=== PATIENT | female | born 1960 | race Caucasian/White ===

== ENCOUNTER → 2017-02-27 | Outpatient (CLI) | payer OTHER ==
[~2017-02-27] MED LIST: LIDOCAINE 1%, 50ML ONE
== END | disposition home or self-care (01) ==
LOC: CFH 07:44
PROVIDERS: ATTEND Nurse Practitioner Primary Care
DX: R92.1 Mammographic calcification found on diagnostic imaging of breast (principal); R92.2 Inconclusive mammogram
CPT/HCPCS: 19081; 88305; G0206; J3490

== ENCOUNTER 2018-10-19 03:54 | Emergency (ER) | payer BC, OTHER ==
[~2018-10-19] VITALS: Ht 152.4 cm; Wt 65.9 kg
[2018-10-19 08:05] VITALS: BP 155/74
== END 2018-10-19 08:07 | disposition home or self-care (01) ==
LOC: ED 06:17
DX: K80.70 Calculus of gallbladder and bile duct without cholecystitis without obstruction (principal); N30.00 Acute cystitis without hematuria
CPT/HCPCS: 36415; 76700; 80053; 81001; 83690; 85025; 87077; 87086; 93005; 96374; 96375; 99284; J1170; J2405; 87186

== ENCOUNTER 2019-03-22 23:00 | Emergency (ER) | payer OTHER ==
[~2019-03-22] VITALS: Ht 152.4 cm; Wt 63.8 kg
[2019-03-23 00:14] LABS: BASOPHILS # (AUTO) 0.04 x10^3/uL (0-0.1); BASOPHILS % (AUTO) 0 % (0-1); EOSINOPHILS # (AUTO) 0.17 x10^3/uL (0-0.4); EOSINOPHILS % (AUTO) 2 % (1-7); LYMPHOCYTES # (AUTO) 3.28 x10^3/uL (1-3.4); LYMPHOCYTES % (AUTO) 29 % (22-44); MD NO; MEAN CORPUSCULAR HEMOGLOBIN 30.5 pg (27.0-34.8); MEAN CORPUSCULAR HGB CONC 33.9 g/dL (32.4-35.8); MONOCYTES # (AUTO) 0.46 x10^3/uL (0.2-0.8); MONOCYTES % (AUTO) 4 % (2-9); NEUTROPHILS # (AUTO) 7.22 x10^3/uL (1.8-6.8); NEUTROPHILS % (AUTO) 65 % (42-75); PLATELET COUNT 226 x10^3/uL (130-400); RED BLOOD COUNT 5.07 x10^6/uL (3.82-5.3); RED CELL DISTRIBUTION WIDTH 14.7 % (9.6-15.2)
[2019-03-23 00:24] LABS: ALANINE AMINOTRANSFERASE 24 U/L (12-78); ALBUMIN 4.1 g/dL (3.4-5.0); ANION GAP 7 mmol/L (5-15); CALCIUM 9.4 mg/dL (8.5-10.1); CHLORIDE 106 mmol/L (98-107)
[2019-03-23 00:26] LABS: ALKALINE PHOSPHATASE 95 U/L (45-117); BILIRUBIN,TOTAL 0.5 mg/dL (0.2-1.0); TOTAL PROTEIN 7.9 g/dL (6.4-8.2)
[2019-03-23] MEDS ORDERED: ONDANSETRON ODT 8 MG PO ONE (00:30)
[2019-03-23] MEDS ORDERED: KETOROLAC 30 MG/1 ML IM ONE (00:30)
[2019-03-23] MEDS ORDERED: ONDANSETRON ODT 8 MG ONE (00:34)
[2019-03-23] MEDS ORDERED: KETOROLAC 30 MG/1 ML ONE (00:34)
--- NOTE | 2019-03-23 00:42 | NUR ---
THIS IS A 59 YO FEMALE COMING IN FOR KNOWN GALLSTONES AND C/O "I'M HAVING A FLARE UP TODAY, IT STARTED AFTER BREAKFAST. I'VE BEEN NAUSEOUS SINCE THEN. I GOT A HEADACHE EARLIER TODAY TOO." STATES "I'M MEETING WITH THE SURGEON SATURDAY TO MAKE AN APPT FOR SURGERY TO GET THE GALLSTONES REMOVED". PATIENT CURRENTLY C/O 10/ RIGHT SIDED ABD PAIN "IT FEELS LIKE MY GALBLADDER IS SQUEEZING". DENIES ANY OTHER MEDICAL HX, ONLY SX WAS HYSTERECTOMY. VSS, BUT HYPERTENSIVE WHICH PATIENT STATES IS NOT HER NORM, NO DX OF HTN. SPO2 AND BP MONITORING IN PLACE, CALL LIGHT IN REACH, DENIES NEEDS AT THIS TIME. PATIENT MEDICATED PER EMAR, TOLERATED WELL.
[2019-03-23] MEDS ORDERED: HYDROcodone/APAP 10/325 MG TABLET PO ONE (01:00)
[2019-03-23] MEDS ORDERED: HYDROcodone/APAP 10/325 MG TABLET ONE (01:03)
--- NOTE | 2019-03-23 01:26 | NUR ---
PATIENT MEDICATED PER EMAR, TOLERATED WELL. PAIN CURRENTLY NOW DOWN TO 7/10, DENIES NAUSEA AT THIS TIME. VSS, FAMILY IN ROOM, NAD, CALL LIGHT IN REACH, DENIES NEEDS AT THIS TIME
--- NOTE | 2019-03-23 01:58 | NUR ---
BEDSIDE REPORT GIVEN TO BRADY CARTER. PLAN OF CARE DISCUSSED.
[2019-03-23 02:33] VITALS: BP 163/80
== END 2019-03-23 02:45 | disposition home or self-care (01) ==
LOC: ED 03-23 01:08
DX: K80.70 Calculus of gallbladder and bile duct without cholecystitis without obstruction (principal)
CPT/HCPCS: 36415; 76700; 80053; 83690; 85025; 96372; 99284; J1885; Q0162

== ENCOUNTER 2019-04-01 12:30 | Outpatient (CLI) | payer OTHER ==
[2019-04-01] MEDS ORDERED: NAPR220C2 PO (14:44)
== END 2019-04-01 23:59 | disposition home or self-care (01) ==
LOC: STAR 12:30
PROVIDERS: ATTEND Surgery
DX: Z02.9 Encounter for administrative examinations, unspecified (principal)

== ENCOUNTER 2019-04-06 06:43 | Day surgery (SDC) | payer OTHER ==
[~2019-04-06] VITALS: Ht 152.4 cm; Wt 62.3 kg
[~2019-04-06 06:43] MED LIST changes: +BUPIVACAINE/PF 0.5% ONE; +EPINEPHRINE 1 MG/ML, 1ML ONE; -LIDOCAINE 1%, 50ML ONE; +NAPR220C2 PO
[2019-04-06 07:12] VITALS: BP 117/80
[2019-04-06] MEDS ORDERED: LACTATED RINGERS 1,000 ML IV SCH (07:14)
[2019-04-06] MEDS ORDERED: PROPOFOL 50 ML ONE (07:56)
[2019-04-06] MEDS ORDERED: MIDAZOLAM 1 MG/ML, 2ML ONE (07:56)
[2019-04-06] MEDS ORDERED: ROCURONIUM 10MG/ML,5ML ONE (08:06)
[2019-04-06] MEDS ORDERED: KETOROLAC 30 MG/1 ML ONE (08:06)
[2019-04-06] MEDS ORDERED: ONDANSETRON 2MG/ML, 2ML ONE (08:12)
[2019-04-06] MEDS ORDERED: DEXAMETHASONE 4 MG/ML, 1ML ONE (08:12)
[2019-04-06] MEDS ORDERED: SUCCINYLCHOLINE 20 MG/ML, 10ML ONE (08:12)
[2019-04-06] MEDS ORDERED: FENTANYL PF 250 MCG/5ML ONE (08:12)
[2019-04-06] MEDS ORDERED: ACETAMINOPHEN 325 MG TABLET PO PRN (08:30)
[2019-04-06] MEDS ORDERED: DIPHENHYDRAMINE 50 MG/ML, 1ML IVPush PRN (08:30)
[2019-04-06] MEDS ORDERED: EPHEDRINE 50 MG/ML, 1ML IM PRN (08:30)
[2019-04-06] MEDS ORDERED: OXYcodone 5 MG/5 ML ORAL.SOL UDC PO PRN (08:30)
[2019-04-06] MEDS ORDERED: ONDANSETRON 2MG/ML, 2ML IV PRN (08:30)
[2019-04-06] MEDS ORDERED: FENTANYL PF 100 MCG/2ML IV PRN (08:30)
[2019-04-06] MEDS ORDERED: DIAZEPAM 5 MG/ML, 2ML IVPush PRN (08:30)
[2019-04-06] MEDS ORDERED: EPHEDRINE 50 MG/ML, 1ML IVPush PRN (08:30)
[2019-04-06] MEDS ORDERED: hydrALAzine 20 MG/ML, 1ML IV PRN (08:30)
[2019-04-06] MEDS ORDERED: PROMETHAZINE 25 MG/ML, 1ML IV PRN (08:30)
[2019-04-06] MEDS ORDERED: MORPHINE SULFATE 4 MG/ML, 1ML IVPush PRN (08:30)
[2019-04-06] MEDS ORDERED: METOPROLOL 1 MG/ML, 5ML IV PRN (08:30)
[2019-04-06] MEDS ORDERED: MEPERIDINE/PF 25MG/ML,1ML IVPush PRN (08:30)
[2019-04-06] MEDS ORDERED: ONDANSETRON ODT 8 MG PO PRN (08:30)
[2019-04-06] MEDS ORDERED: OXYcodone 5 MG/5 ML ORAL.SOL UDC ONE (09:03)
[2019-04-06] MEDS ORDERED: ACETAMINOPHEN 650 MG/20.3 ML UDC ONE (09:04)
[2019-04-06] MEDS ORDERED: ACETAMINOPHEN 325 MG TABLET ONE (09:07)
== END 2019-04-06 10:45 | disposition home or self-care (01) ==
LOC: OUT 06:43
PROVIDERS: ATTEND Surgery
DX: K80.10 Calculus of gallbladder with chronic cholecystitis without obstruction (principal); F17.210 Nicotine dependence, cigarettes, uncomplicated; Z90.710 Acquired absence of both cervix and uterus; Z72.89 Other problems related to lifestyle; Z88.1 Allergy status to other antibiotic agents
CPT/HCPCS: 47562; 88304; J0171; J0330; J1100; J1885; J2250; J2405; J2704; J3010; J7120